=== PATIENT | female | born 1995 | race African-American/Black ===

== ENCOUNTER 2017-03-31 17:01 | Emergency (ER) | payer OTHER ==
--- NOTE | 2017-03-31 18:00 | RAD ---
RADIOGRAPH LEFT KNEE 4 VIEWS: 03/31/17 HISTORY: 21-year-old female with left knee pain. FINDINGS: No joint effusion or edema in Hoffa's fat pad. No soft tissue calcifications. Joint spaces are mainta ined without erosions or osteophytes. No fracture, dislocation, periosteal elevation, permeative lesi on, osteolytic lesion, or osteoblastic lesion. IMPRESSION: Normal. POS: KWAN
== END 2017-03-31 17:46 | disposition home or self-care (01) ==
LOC: ERS 17:01
DX: S83.92XA Sprain of unspecified site of left knee, initial encounter (principal); F41.9 Anxiety disorder, unspecified; F31.9 Bipolar disorder, unspecified; Y93.67 Activity, basketball

== ENCOUNTER 2017-12-30 12:44 | Emergency (ER) | payer OTHER ==
[2017-12-30] MEDS ORDERED: diphenhydrAMINE 50 MG/ML VIAL ONE (13:26)
[2017-12-30] MEDS ORDERED: Metoclopramide HCl 10 MG/2 ML VIAL ONE (13:26)
== END 2017-12-30 14:16 | disposition home or self-care (01) ==
LOC: ERS 12:44
DX: R51 Headache (principal); J45.909 Unspecified asthma, uncomplicated; F41.9 Anxiety disorder, unspecified; F31.9 Bipolar disorder, unspecified
CPT/HCPCS: 96361; 96374; 96375; J1200; J2765

== ENCOUNTER 2018-03-08 15:34 | Emergency (ER) | payer OTHER | END 2018-03-08 16:00 | disposition left against medical advice (07) | LOC: ERS 15:34 | DX: Z53.21 Procedure and treatment not carried out due to patient leaving prior to being seen by health care provider (principal) ==

== ENCOUNTER 2018-09-26 20:42 | Emergency (ER) | payer OTHER ==
[2018-09-26] MEDS ORDERED: Dexamethasone 10 MG/ML VIAL ONE (21:10)
[2018-09-26] MEDS ORDERED: diphenhydrAMINE 25 MG CAP ONE (21:10)
== END 2018-09-26 21:41 | disposition home or self-care (01) ==
LOC: ERS 20:42
DX: T78.40XA Allergy, unspecified, initial encounter (principal); J45.909 Unspecified asthma, uncomplicated; F41.9 Anxiety disorder, unspecified; F31.9 Bipolar disorder, unspecified
CPT/HCPCS: 99282; J1100; Q0163

== ENCOUNTER 2018-12-12 19:21 | Emergency (ER) | payer OTHER ==
--- NOTE | 2018-12-12 19:48 | RAD ---
RADIOGRAPH CHEST 2 VIEWS: DATE: 12/12/2018 HISTORY: 23-year-old female with chest pain FINDINGS: The lungs are clear. The cardiomediastinal silhouette and hilar shadows appear normal. There is no pl eural effusion or pneumothorax. No osseous abnormality is identified in the chest. There is mild curvature of the lumbar spine, incompletely imaged. IMPRESSION: Negative
== END 2018-12-12 21:10 | disposition home or self-care (01) ==
LOC: ERS 19:21
DX: M94.0 Chondrocostal junction syndrome [Tietze] (principal); J45.909 Unspecified asthma, uncomplicated; F31.9 Bipolar disorder, unspecified; F41.9 Anxiety disorder, unspecified
CPT/HCPCS: 71046; 93005

== ENCOUNTER 2019-03-09 01:56 | Emergency (ER) | payer OTHER ==
[2019-03-09 02:21] LABS: #Basophils 0.1 thou/uL (0.0-0.2); #Eosinphils 0.4 thou/uL (0.0-0.7); #Lymphocytes 3.6 thou/uL (1.20-3.40); #Monocytes 0.7 thou/uL (0.11-0.59); #Neutrophils 4.2 thou/uL (1.40-6.50); %Basophils 1.1 % (0.0-1.0); %Eosinophils 4.6 % (0.0-10.0); %Lymphocytes 39.7 % (21.0-51.0); %Monocytes 8.2 % (0.0-10.0); %Neutrophils 46.5 % (42.0-75.0); Hemoglobin 11.9 g/dL (12.0-16.0); Mean Corpuscular HGB CONC 31.5 g/dL (32.0-36.0); Mean Corpuscular Hemoglobin 24.2 pg (27.0-31.0); Mean Platelet Volume 8.1 fL (7.4-10.4); Platelet Count 232 thou/uL (130-400); RBC Distribution Width 13.6 % (11.5-14.5); Red Blood Cell (RBC) Count 4.92 mill/uL (4.20-5.40)
[2019-03-09 02:31] LABS: Bilirubin Negative (Negative); Blood, Urine Negative (Negative); Clarity Clear (Clear); Glucose, Urine (Dipstick) Normal (Negative); Leukocyte Negative Leu/uL (Negative); Nitrite Negative (Negative); Protein, Urine (Dipstick) Negative (Neg-Trace); Urobilinogen Normal mg/dL (Less than 2)
[2019-03-09 02:34] LABS: Pregnancy Test - Urine (BHCG) Negative (Negative); Specific Gravity 1.024 (1.002-1.036)
[2019-03-09 02:35] LABS: Pregu Control Background? CLEAR/WHITE (CLR/WHITE); Pregu Control Bar Appear? YES (CONTROL BAR)
[2019-03-09 02:42] LABS: ALT (SGPT) 20 U/L (8-55); AST (SGOT) 17 U/L (5-34); Albumin 4.3 g/dL (3.5-5.0); Alkaline Phosphatase 46 U/L (40-110); Anion Gap 12 mmol/L (10-20); BUN (Urea Nitrogen) 15 mg/dL (7.0-18.7); Bilirubin, Total 0.3 mg/dL (0.2-1.2); Calc. Creatinine Clearance 0 mL/min (70-130); Calcium 9.3 mg/dL (7.8-10.44); Carbon Dioxide 23 mmol/L (22-29); Chloride 108 mmol/L (98-107); Estimated GFR-MDRD 78; Globulin 3.2 g/dL (2.4-3.5); Glucose 94 mg/dL (70-105); Protein, Total 7.5 g/dL (6.0-8.3); Sodium 139 mmol/L (136-145)
== END 2019-03-09 03:09 | disposition left against medical advice (07) ==
LOC: ERS 01:56
DX: Z53.21 Procedure and treatment not carried out due to patient leaving prior to being seen by health care provider (principal)
CPT/HCPCS: 36415; 80053; 81003; 81025; 85025; 87804

== ENCOUNTER 2019-06-03 20:18 | Emergency (ER) | payer OTHER | END 2019-06-03 21:44 | disposition left against medical advice (07) | LOC: ERS 20:18 | DX: Z53.21 Procedure and treatment not carried out due to patient leaving prior to being seen by health care provider (principal) ==

== ENCOUNTER 2019-09-22 18:57 | Emergency (ER) | payer OTHER ==
[2019-09-22] MEDS ORDERED: Ondansetron PF 4 MG/2 ML Vial ONE (19:23)
[2019-09-22] MEDS ORDERED: Morphine 4 MG/ML VIAL ONE (19:23)
[2019-09-22 19:38] LABS: #Basophils 0.1 thou/uL (0.0-0.2); #Eosinphils 0.4 thou/uL (0.0-0.7); #Lymphocytes 2.5 thou/uL (1.20-3.40); #Monocytes 0.7 thou/uL (0.11-0.59); #Neutrophils 5.8 thou/uL (1.40-6.50); %Basophils 0.9 % (0.0-1.0); %Eosinophils 4.1 % (0.0-10.0); %Lymphocytes 26.3 % (21.0-51.0); %Monocytes 7.1 % (0.0-10.0); %Neutrophils 61.7 % (42.0-75.0); Hemoglobin 12.8 g/dL (12.0-16.0); Mean Corpuscular HGB CONC 32.5 g/dL (32.0-36.0); Mean Corpuscular Hemoglobin 25.4 pg (27.0-31.0); Mean Platelet Volume 8.6 fL (7.4-10.4); Platelet Count 258 thou/uL (130-400); RBC Distribution Width 12.5 % (11.5-14.5); Red Blood Cell (RBC) Count 5.04 mill/uL (4.20-5.40); White Blood Cell (WBC) Count 9.4 thou/uL (4.8-10.8)
[2019-09-22 19:57] LABS: ALT (SGPT) 24 U/L (8-55); AST (SGOT) 22 U/L (5-34); Albumin 4.3 g/dL (3.5-5.0); Alkaline Phosphatase 67 U/L (40-110); Anion Gap 13 mmol/L (10-20); BUN (Urea Nitrogen) 16 mg/dL (7.0-18.7); Bilirubin, Total 0.2 mg/dL (0.2-1.2); Calc. Creatinine Clearance 0 mL/min (70-130); Calcium 9.4 mg/dL (7.8-10.44); Carbon Dioxide 23 mmol/L (22-29); Chloride 104 mmol/L (98-107); Estimated GFR-MDRD 63; Globulin 3.4 g/dL (2.4-3.5); Glucose 98 mg/dL (70-105); Potassium 4.4 mmol/L (3.5-5.1); Protein, Total 7.7 g/dL (6.0-8.3); Sodium 136 mmol/L (136-145)
--- NOTE | 2019-09-22 19:59 | ULT ---
EXAM: Left lower extremity venous Doppler US HISTORY: left lower extremity edema and pain FINDINGS: Grayscale, color-flow, Doppler evaluation, spectral analysis of the left lower extremity venous struc tures is performed with 2-D imaging. The left common femoral, superficial femoral, popliteal, posterior tibial, proximal greater saphenous and profunda femoral veins are imaged. There is normal luminal compressibility, flow, and augmentation the visualized deep venous structures of the left lower extremity. IMPRESSION: No evidence of a deep vein thrombosis in the left lower extremity.
[2019-09-22] MEDS ORDERED: diphenhydrAMINE 12.5 MG/5 ML UDCUP ONE (20:53)
[2019-09-22] MEDS ORDERED: diphenhydrAMINE 50 MG/ML VIAL ONE (20:54)
== END 2019-09-22 21:21 | disposition home or self-care (01) ==
LOC: ERS 18:57
DX: M62.838 Other muscle spasm (principal); J45.909 Unspecified asthma, uncomplicated; F41.9 Anxiety disorder, unspecified; F31.9 Bipolar disorder, unspecified
CPT/HCPCS: 80053; 85025; 96374; 96375; J1200; J2270; J2405; Q0163

== ENCOUNTER 2019-12-14 02:22 | Emergency (ER) | payer OTHER ==
[2019-12-14 02:40] LABS: #Basophils 0.1 thou/uL (0.0-0.2); #Eosinphils 0.3 thou/uL (0.0-0.7); #Lymphocytes 3.3 thou/uL (1.20-3.40); #Monocytes 0.9 thou/uL (0.11-0.59); #Neutrophils 5.2 thou/uL (1.40-6.50); %Basophils 0.9 % (0.0-1.0); %Lymphocytes 33.5 % (21.0-51.0); %Neutrophils 53.6 % (42.0-75.0); Hemoglobin 12.1 g/dL (12.0-16.0); Mean Corpuscular HGB CONC 32.4 g/dL (32.0-36.0); Mean Corpuscular Volume 77.3 fL (78.0-98.0); Mean Platelet Volume 8.3 fL (7.4-10.4); Platelet Count 241 thou/uL (130-400); RBC Distribution Width 12.9 % (11.5-14.5); Red Blood Cell (RBC) Count 4.82 mill/uL (4.20-5.40); White Blood Cell (WBC) Count 9.8 thou/uL (4.8-10.8)
[2019-12-14] MEDS ORDERED: Morphine 4 MG/ML VIAL ONE (02:58)
[2019-12-14] MEDS ORDERED: Ketorolac Tromethamine 30 MG/ML VIAL ONE (02:58)
[2019-12-14 03:01] LABS: ALT (SGPT) 16 U/L (8-55); AST (SGOT) 18 U/L (5-34); Albumin 4.4 g/dL (3.5-5.0); Alkaline Phosphatase 62 U/L (40-110); Anion Gap 15 mmol/L (10-20); BUN (Urea Nitrogen) 14 mg/dL (7.0-18.7); Bilirubin, Total 0.3 mg/dL (0.2-1.2); Calc. Creatinine Clearance 0 mL/min (70-130); Calcium 9.8 mg/dL (7.8-10.44); Carbon Dioxide 22 mmol/L (22-29); Chloride 105 mmol/L (98-107); Estimated GFR-MDRD 59; Globulin 3.4 g/dL (2.4-3.5); Glucose 110 mg/dL (70-105); Potassium 3.8 mmol/L (3.5-5.1); Protein, Total 7.8 g/dL (6.0-8.3); Sodium 138 mmol/L (136-145)
--- NOTE | 2019-12-14 07:31 | RAD ---
Exam:Right foot 3 views HISTORY: Trauma. Pain. COMPARISON: None FINDINGS: Lisfranc alignment is maintained. Preserved joint spaces. No fracture. IMPRESSION: No fracture.
--- NOTE | 2019-12-14 07:31 | RAD ---
Exam:Right ankle 3 views HISTORY: Pain. Trauma. COMPARISON: None FINDINGS: Mild lateral soft tissue swelling. No fracture, cortical irregularity or periosteal reactio n. Preserved joint spaces. IMPRESSION: No fracture.
--- NOTE | 2019-12-14 08:42 | RAD ---
Exam:Right forearm 2 views HISTORY: Pain. COMPARISON: None FINDINGS: No fracture, cortical irregularity or periosteal reaction. IMPRESSION: No fracture.
--- NOTE | 2019-12-14 08:43 | RAD ---
Exam:3 views left knee HISTORY: Trauma. Pain. COMPARISON: 03/31/2017 FINDINGS: Preserved joint spaces. No fractures or malalignment. No joint effusion. IMPRESSION: No fracture.
--- NOTE | 2019-12-14 11:07 | RAD ---
PORTABLE CHEST: Date: 12/14/2019 HISTORY: Fall. FINDINGS: Lungs are clear. Heart and mediastinum appear normal. Osseous structures appear intact. IMPRESSION: No acute process. POS: AGW
== END 2019-12-14 03:52 | disposition home or self-care (01) ==
LOC: ERS 02:22
DX: S50.11XA Contusion of right forearm, initial encounter (principal); S90.31XA Contusion of right foot, initial encounter; S80.01XA Contusion of right knee, initial encounter; J45.909 Unspecified asthma, uncomplicated; F41.9 Anxiety disorder, unspecified; F31.9 Bipolar disorder, unspecified; V80.010A Animal-rider injured by fall from or being thrown from horse in noncollision accident, initial encounter
CPT/HCPCS: 71045; 80053; 85025; 96372; J1885; J2270

== ENCOUNTER 2020-06-04 13:39 | Outpatient (CLI) | payer OTHER | END 2020-06-04 13:40 | disposition home or self-care (01) | LOC: ULT 13:39 | PROVIDERS: ATTEND Family Medicine | DX: R01.1 Cardiac murmur, unspecified (principal) | CPT/HCPCS: 93306 ==

== ENCOUNTER 2020-09-23 17:30 | Emergency (ER) | payer OTHER ==
[2020-09-23] MEDS ORDERED: Acetaminophen 500 MG TAB ONE (18:28)
== END 2020-09-23 19:53 | disposition home or self-care (01) ==
LOC: ERS 17:30
DX: S16.1XXA Strain of muscle, fascia and tendon at neck level, initial encounter (principal); S40.011A Contusion of right shoulder, initial encounter; S70.11XA Contusion of right thigh, initial encounter; S80.11XA Contusion of right lower leg, initial encounter; I10 Essential (primary) hypertension; Y04.2XXA Assault by strike against or bumped into by another person, initial encounter
CPT/HCPCS: 72125

== ENCOUNTER 2021-02-20 10:56 | Emergency (ER) | payer OTHER ==
[2021-02-20] MEDS ORDERED: Acetaminophen 500 MG TAB ONE (11:20)
[2021-02-20 13:21] LABS: Pregnancy Test - Urine (BHCG) Negative (Negative); Pregu Control Background? CLEAR/WHITE (CLR/WHITE); Pregu Control Bar Appear? YES (CONTROL BAR); Specific Gravity 1.008 (1.002-1.036)
== END 2021-02-20 13:06 | disposition left against medical advice (07) ==
LOC: ERS 10:56
DX: M54.2 Cervicalgia (principal); R10.10 Upper abdominal pain, unspecified; R07.89 Other chest pain; R51.9 Headache, unspecified; I10 Essential (primary) hypertension; J45.909 Unspecified asthma, uncomplicated; Y04.8XXA Assault by other bodily force, initial encounter
CPT/HCPCS: 71046; 81025

== ENCOUNTER 2022-02-27 14:03 | Emergency (ER) | payer OTHER | END 2022-02-27 15:13 | disposition left against medical advice (07) | LOC: ERS 14:03 | DX: Z53.21 Procedure and treatment not carried out due to patient leaving prior to being seen by health care provider (principal) ==

== ENCOUNTER 2023-05-09 14:58 | Emergency (ER) | payer MEDICAID, OTHER, SELFPAY ==
[2023-05-09] MEDS ORDERED: diphenhydrAMINE 25 MG CAP ONE (16:23)
== END 2023-05-09 16:26 | disposition home or self-care (01) ==
LOC: ERS 14:58
DX: T78.40XA Allergy, unspecified, initial encounter (principal); L50.9 Urticaria, unspecified; I10 Essential (primary) hypertension; F17.210 Nicotine dependence, cigarettes, uncomplicated
CPT/HCPCS: 99282

== ENCOUNTER 2023-06-16 11:31 | Emergency (ER) | payer MEDICAID, OTHER, SELFPAY | END 2023-06-16 12:11 | disposition home or self-care (01) | LOC: ERS 11:31 | DX: S60.444A External constriction of right ring finger, initial encounter (principal); I10 Essential (primary) hypertension; W49.04XA Ring or other jewelry causing external constriction, initial encounter | CPT/HCPCS: 99283 ==

== ENCOUNTER 2023-07-14 12:26 | Emergency (ER) | payer OTHER ==
[2023-07-14 13:35] LABS: Bilirubin Negative (Negative); Blood, Urine Negative (Negative); CAUTI Indications for Culture Pelvic or flank pain; Clarity Clear (Clear); Glucose, Urine (Dipstick) Normal (Negative); Ketone, Urine Negative (Negative); Leukocyte Negative Leu/uL (Negative); Mucous/LPF 1+ LPF (<2+); Nitrite Negative (Negative); Pregnancy Test - Urine (BHCG) Negative (Negative); Pregu Control Background? CLEAR/WHITE (CLR/WHITE); Pregu Control Bar Appear? YES (CONTROL BAR); Protein, Urine (Dipstick) 10 mg/dL (Neg-Trace); RBC/HPF 0-3 HPF (0-3); Specific Gravity 1.026 (1.002-1.036); Specific Gravity, Urine 1.026 (1.002-1.036); Urobilinogen Normal mg/dL (Less than 2); WBC/HPF 0-3 HPF (0-3)
[2023-07-14 13:36] LABS: Bacteria/HPF Rare-Few HPF (None Seen)
[2023-07-14 13:37] LABS: Urine Culture Reflex No No
[2023-07-15 10:01] LABS: Chlamydia by PCR, Vaginal Swab Not Detected (NotDetected); GC by PCR, Vaginal Swab Not Detected (NotDetected)
== END 2023-07-14 14:31 | disposition home or self-care (01) ==
LOC: ERS 12:26
DX: N76.0 Acute vaginitis (principal)
CPT/HCPCS: 81001; 81025; 87480; 87491; 87510; 87591; 87660; 99283

== ENCOUNTER 2024-12-29 09:04 | Emergency (ER) | payer OTHER, SELFPAY ==
[2024-12-29] MEDS ORDERED: Aspirin Chewable 81 MG TAB ONE ×2 (10:19→10:23)
[2024-12-29] MEDS ORDERED: Losartan 25 MG TAB ONE (10:21)
[2024-12-29 10:22] LABS: #Basophils 0.04 10x3/uL (0.0-0.2); #Eosinophils 0.50 10x3/uL (0.0-0.7); #Monocytes 0.75 10x3/uL (0.11-0.59); #Neutrophils 4.68 10x3/uL (1.40-6.50); %Basophils 0.5 % (0.0-1.0); %Eosinophils 5.6 % (0.0-10.0); %Lymphocytes 32.3 % (21.0-51.0); %Monocytes 8.4 % (0.0-10.0); %Neutrophils 52.7 % (42.0-75.0); Hematocrit 35.3 % (36.0-47.0); Hemoglobin 10.9 g/dL (12.0-16.0); Mean Corpuscular Hemoglobin 22.9 pg (27.0-31.0); Mean Corpuscular Volume 74.3 fL (78.0-98.0); Platelet Count 283 10x3/uL (130-400); Red Blood Cell (RBC) Count 4.75 mill/uL (4.20-5.40); White Blood Cell (WBC) Count 8.88 10x3/uL (4.8-10.8)
[2024-12-29 10:31] LABS: BHCG - Serum Negative (NEGATIVE); Pregs Control Background? CLEAR/WHITE (CLR/WHITE); Pregs Control Bar Appear? YES (CONTROL BAR)
[2024-12-29 10:42] LABS: ALT (SGPT) 16 U/L (Less than 34); AST (SGOT) 23 U/L (11-34); Albumin 3.7 g/dL (3.1-4.5); Alkaline Phosphatase 66 U/L (40-110); Anion Gap 13 mmol/L (10-20); BUN (Urea Nitrogen) 12 mg/dL (7.0-18.7); Bilirubin, Total 0.2 mg/dL (0.3-1.2); Calc. Creatinine Clearance 0 mL/min (70-130); Calcium 8.8 mg/dL (7.8-10.44); Carbon Dioxide 25 mmol/L (22-29); Chloride 105 mmol/L (98-107); Globulin 3.1 g/dL (2.4-3.5); Glucose 101 mg/dL (70-105); Magnesium 1.9 mg/dL (1.6-2.6); Potassium 3.5 mmol/L (3.5-5.1); Sodium 139 mmol/L (136-145)
[2024-12-29 10:45] LABS: Anisocytosis SLIGHT = 6-15 cells HPF (0-5); Burr Cells SLIGHT = 2-5 cells HPF (0-1); Platelet Adequacy Comment Platelets Normal; Polychromasia SLIGHT = 2-3 cells HPF (0-2)
[2024-12-29 11:15] LABS: HIV (1/2) Antibody/Antigen NONREACTIVE (NonReactive); HIV 1/2 INDEX 0.06 S/CO (<1.00)
[2024-12-29 11:17] LABS: Bacteria/HPF None Seen HPF (None Seen); CAUTI Indications for Culture Dysuria,urgency,freq; Glucose, Urine (Dipstick) Normal (Negative); Leukocyte Negative Leu/uL (Negative); Protein, Urine (Dipstick) Negative (Neg-Trace); RBC/HPF 0-3 HPF (0-3); Specific Gravity, Urine 1.018 (1.002-1.036); WBC/HPF None Seen HPF (0-3)
[2024-12-29 11:19] LABS: Urine Culture Reflex No No
[2024-12-29 15:11] LABS: Syphilis Antibody Index 0.07 S/CO (<1.00 Non-Reactive)
[2024-12-29 23:05] LABS: Chlamydia by PCR, Vaginal Swab Not Detected (NotDetected); GC by PCR, Vaginal Swab Not Detected (NotDetected)
== END 2024-12-29 12:09 | disposition home or self-care (01) ==
LOC: ERS 09:04
DX: N76.0 Acute vaginitis (principal); I10 Essential (primary) hypertension; Z55.6 Problems related to health literacy
CPT/HCPCS: 71045; 80053; 81001; 83735; 83880; 84484; 84703; 85025; 86780; 87389; 87480; 87491; 87510; 87591; 87660; 93005; 94760